=== PATIENT | female | born 1945 | race Caucasian/White ===

== ENCOUNTER 2020-02-12 08:13 | Outpatient (CLI) | payer OTHER, SELFPAY ==
--- NOTE | ~2020-02-12 | MM_ITS ---
EXAMINATION: MM screening sahil BI w zachary HISTORY: Screening mammogram TECHNIQUE: Craniocaudal and mediolateral oblique 3-D tomosynthesis images were obtained and synthetic 2-D images were generated. CAD analysis was submitted and interpreted. COMPARISON: 01/18/2017, 10/09/2014, 07/25/2012 bilateral digital screening mammogram examinations BREAST PARENCHYMAL COMPOSITION: There are scattered areas of fibroglandular density. FINDINGS: Occasional bilateral benign calcifications. Occasional small circumscribed low-density nicolle gn-appearing opacities, including stable approximately 4 mm probable benign intramammary lymph node i n the upper outer quadrant of the right breast.. There is no evidence of suspicious mass, calcificati on, or architectural distortion to suggest malignancy in either breast. There has been no suspicious interval change. IMPRESSION: 1. No mammographic evidence of malignancy. 2. Recommend routine screening mammography in one year. BI-RADS Category 2: Benign finding(s). Reviewed, dictated and finalized at location A.
== END 2020-02-12 08:14 | disposition home or self-care (01) ==
LOC: ANHIMG 08:15
PROVIDERS: PCP Internal Medicine; Visit Provider Internal Medicine
DX: Z12.31 Encounter for screening mammogram for malignant neoplasm of breast (principal)
CPT/HCPCS: 77063; 77067

== ENCOUNTER 2021-01-13 10:14 | Outpatient (CLI) | payer OTHER, MEDICARE, SELFPAY | END 2021-01-13 10:15 | disposition home or self-care (01) | LOC: ANHCOVIDVC 10:14 | PROVIDERS: PCP Internal Medicine | DX: Z23 Encounter for immunization (principal) | CPT/HCPCS: 0001A; 91300 ==

== ENCOUNTER 2021-02-03 09:45 | Outpatient (CLI) | payer OTHER, MEDICARE, SELFPAY | END 2021-02-03 09:46 | disposition home or self-care (01) | LOC: ANHCOVIDVC 09:45 | PROVIDERS: PCP Internal Medicine | DX: Z23 Encounter for immunization (principal) | CPT/HCPCS: 0002A; 91300 ==

== ENCOUNTER 2021-03-10 07:53 | Outpatient (CLI) | payer OTHER, SELFPAY ==
--- NOTE | ~2021-03-10 | MM_ITS ---
EXAMINATION: MM screening sahil BI w zachary HISTORY: Screening TECHNIQUE: Craniocaudal and mediolateral oblique 3-D tomosynthesis images were obtained and synthetic 2-D images were generated. CAD analysis was submitted and interpreted. COMPARISON: Comparison to multiple prior studies sequentially, with oldest reviewed study dated 07/25. BREAST PARENCHYMAL COMPOSITION: Breast composed of scattered areas of fibroglandular density. FINDINGS: There are developing clustered calcifications upper outer quadrant of the left breast, midd le third. The right breast is stable without evidence for malignancy. IMPRESSION: 1. Clustered indeterminate calcifications upper outer quadrant of the left breast. 2. Magnification views are recommended. BI-RADS Category 0: Incomplete: Needs additional imaging evaluation. Reviewed, dictated and finalized at location A. IMPRESSION: 1. Clustered indeterminate calcifications upper outer quadrant of the left [address]. 2. Magnification views are recommended. BI-RADS Category 0: Incomplete: Needs additional imaging evaluation.
--- NOTE | ~2021-03-10 | DEXA_ITS ---
Bone Density Report Name: Meghana Dixon Age: 76 Sex: Female Ethnicity: White Date of : 1945 Indication: osteopenia; height loss; Referring Provider: FABIO CHOUDHURY Study: Bone densitometry was performed. Exam Date: March 10, 2021 Accession number: [id number] Bone Density: Region BMD T-score Z-score Classification AP Spine (L1-L4) 1.049 0.0 2.4 Normal Femoral Neck (Left) 0.607 -2.2 -0.2 Osteopenia Total Hip (Left) 0.848 -0.8 1.0 Normal Total Hip Bilateral Avg 0.791 -1.3 0.5 Osteopenia Femoral Neck (Right) 0.583 -2.4 -0.4 Osteopenia Total Hip (Right) 0.733 -1.7 0.0 Osteopenia World Health Organization criteria for BMD impression classify patients as: Normal (T-score at or above -1.0), Osteopenia (T-score between -1.0 and -2.5), or Osteoporosis (T-score at or below -2.5). 10-year Fracture Risk(1): Major Osteoporotic Fracture 21% Hip Fracture 10% Reported Risk Factors: [place] (), Neck BMD=0.583, BMI=27.3, smoking, alcohol use (1) FRAX(R) Version 3.08. Fracture probability calculated for an untreated patient. Fracture probability may be lower if the patient has received treatment. Previous Exams: Region Exam Age BMD T-score BMD Change BMD Change Date g/cm2 vs Baseline vs Previous AP Spine(L1-L4) 03/10/2021 76 1.049 0.0 0.210(25.1%)# 0.131(14.3%)* 01/18/2017 71 0.917 -1.2 0.079(9.4%)# 0.079(9.4%)# 07/25/2012 67 0.838 -1.9 Total Hip(Left) 03/10/2021 76 0.848 -0.8 0.031(3.8%)# 0.024(2.9%) 01/18/2017 71 0.824 -1.0 0.007(0.8%)# 0.007(0.8%)# 07/25/2012 67 0.817 -1.0 Total Hip(Right) 03/10/2021 76 0.733 -1.7 0.010(1.4%)# 0.002(0.3%) 01/18/2017 71 0.730 -1.7 0.007(1.0%)# 0.007(1.0%)# 07/25/2012 67 0.723 -1.8 *Denotes significance at 95% confidence level, LSC for AP Spine = 0.022 g/cm2, LSC for Total Hip = 0.027 g/cm2 Clinical Information Provided by Patient: Smokes Has 3 or more alcoholic drinks per day Has used the following medications: Fosamax (i.e. alendronate) Patient maximum height was 64 Menopause Age: 50 Drinks caffeinated beverages Onset of menses at age 18 Number of children 0 Impression: The patient has low bone mass, based on the Right Femoral Neck T-score. The patient has an estimated ten-year risk of hip fracture of 10% and an estimated ten-year risk of major fracture of 21%, based on the WHO FRAX algorithm. The patient has risk factors
== END 2021-03-10 07:54 | disposition home or self-care (01) ==
LOC: ANHIMG 07:54
PROVIDERS: PCP Internal Medicine; Visit Provider Internal Medicine
DX: Z12.31 Encounter for screening mammogram for malignant neoplasm of breast (principal); M81.0 Age-related osteoporosis without current pathological fracture; R92.8 Other abnormal and inconclusive findings on diagnostic imaging of breast; M85.852 Other specified disorders of bone density and structure, left thigh; M85.851 Other specified disorders of bone density and structure, right thigh
CPT/HCPCS: 77063; 77067; 77080

== ENCOUNTER 2021-03-16 12:34 | Outpatient (CLI) | payer OTHER, SELFPAY ==
--- NOTE | ~2021-03-16 | MM_ITS ---
EXAMINATION: MM diagnostic mammo unilat LT HISTORY: Indeterminate left breast calcifications on screening mammogram TECHNIQUE: Magnification views of the left breast were performed. CAD analysis was submitted and inte rpreted. COMPARISON: 03/10/2021, 02/12/2020, 01/18/2017, 10/09/2014 FINDINGS: There are two groups of similar appearing coarse heterogeneous calcifications in the middle third of the breast one at the 12:00 location 10 cm from the nipple and the other at the 1:00 locati on 9 cm from the nipple. Both groups demonstrate slow increase in size over serial mammograms. IMPRESSION: 1. Probably benign left breast calcifications. 2. Recommend 6 month follow-up left diagnostic mammogram. BI-RADS category 3, probably benign findings. Reviewed, dictated and finalized at location A.
== END 2021-03-16 12:35 | disposition home or self-care (01) ==
LOC: ANHIMG 12:35
PROVIDERS: PCP Internal Medicine; Visit Provider Internal Medicine
DX: R92.8 Other abnormal and inconclusive findings on diagnostic imaging of breast (principal)
CPT/HCPCS: 77065